=== PATIENT | male | born 1985 | race African-American/Black ===

== ENCOUNTER 2016-12-07 17:41 | Emergency (ER) | payer OTHER ==
[2016-12-07] MEDS ORDERED: KETOROLAC TROMETHAMINE 60 MG/2 ML SDV IM ONE (19:21)
--- NOTE | 2016-12-07 19:29 | ER Document Report ---
ED Neck/Back Problem - General Chief Complaint: Back Pain Stated Complaint: BACK PAIN Time Seen by Provider: 12/07/16 19:13 Notes: 31 yo male c/o left mid/upper back pain x 6 days. pain started after bending over. no radiculopathy or paresthesias, no bowel/bladder change . no fever. no relief with OTC motrin and topical pain patches (salanpas). TRAVEL OUTSIDE OF THE [place] IN LAST 30 DAYS: No - HPI Patient complains to provider of: Pain, Upper back Onset: Sudden Timing: Constant Pain Level: 5 Context: Bending Associated symptoms: denies: Motor loss, Numbness/tingling, Radiation to chest, Radiation to leg, Sensory loss, Unable to urinate Exacerbated by: Cough/deep breaths, Movement of trunk Similar symptoms previously: No Recently seen / treated by doctor: No - Related Data Allergies/Adverse Reactions: No Known Allergies Allergy (Verified 12/07/16 17:42) Past Medical History - General Information source: Patient - Social History Smoking Status: Never Smoker Frequency of alcohol use: None Drug Abuse: None 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 Lives with: Family Family History: Reviewed & Not Pertinent Patient has suicidal ideation: No Patient has homicidal ideation: No - Medical History Medical History: Other - PTSD, Bipolar Renal/ Medical History: Denies: Hx Peritoneal Dialysis Psychiatric Medical History: Reports: Hx Bipolar Disorder, Hx Post Traumatic Stress Disorder - Immunizations Immunizations up to date: No Review of Systems - Review of Systems Constitutional: No symptoms reported EENT: No symptoms reported Cardiovascular: No symptoms reported Respiratory: No symptoms reported Gastrointestinal: No symptoms reported Genitourinary: No symptoms reported Male Genitourinary: No symptoms reported Musculoskeletal: Back pain Skin: No symptoms reported Hematologic/Lymphatic: No symptoms reported Neurological/Psychological: No symptoms reported Physical Exam - Vital signs Vitals: Temp Pulse Resp BP Pulse Ox 97.9 F 70 15 151/89 H 98 12/07/16 17:42 12/07/16 17:42 12/07/16 17:42 12/07/16 17:42 12/07/16 17:42 Interpretation: Normal - General General appearance: Appears well, Alert In distress: Mild - visibly uncomfortable with movement - HEENT Head: Normocephalic, Atraumatic Eyes: Normal Pupils: PERRL - Respiratory Respiratory status: No respiratory distress Chest status: Nontender Breath sounds: Normal Chest palpation: Normal - Cardiovascular Rhythm: Regular Heart sounds: Normal auscultation Murmur: No - Abdominal Inspection: Normal Distension: No distension Bowel sounds: Normal Tenderness: Nontender Organomegaly: No organomegaly - Back Back: Tender - focal tenderness left rhomboid and latissimus muscle groups. no vertebral tenderness. no SI tenderness. neg heel/toe, SLT - Extremities General upper extremity: Normal inspection, Nontender, Normal color, Normal ROM , Normal temperature General lower extremity: Normal inspection, Nontender, Normal color, Normal ROM , Normal temperature, Normal weight bearing. No: Tyra's sign - Neurological Neuro grossly intact: Yes Cognition: Normal Orientation: AAOx4 Demetrio Coma Scale Eye Opening: Spontaneous [place] Coma Scale Verbal: Oriented [place] Coma Scale Motor: Obeys Commands [place] Coma Scale Total: 15 Speech: Normal Motor strength normal: LUE, RUE, LLE, RLE Sensory: Normal - Psychological Associated symptoms: Normal affect, Normal mood - Skin Skin Temperature: Warm Skin Moisture: Dry Skin Color: Normal Course - Re-evaluation Re-evalutation: 12/07/16 19:39 H&P c/w muscle strain. pt ambulatory without difficulty. no neurologic symptoms. low suspicion for cord compression, cauda equina, epidural abscess. no imaging indicated at this time. pt stable for discharge and follow up with PCM. pt agreeable with plan - Vital Signs Vital signs: Temp Pulse Resp BP Pulse Ox 97.9 F 70 15 151/89 H 98 12/07/16 17:42 12/07/16 17:42 12/07/16 17:42 12/07/16 17:42 12/07/16 17:42 Discharge - Discharge Clinical Impression: Muscle strain Back pain Qualifiers: Back pain location: back pain in unspecified location Chronicity: acute Back pain laterality: left Qualified Code(s): M54.9 - Dorsalgia, unspecified Condition: Stable Disposition: HOME, SELF-CARE Instructions: Muscle Strain ([facility]), Warm Packs ([facility]), Ice Packs ([facility]), Oral Narcotic Medication ([facility]), Toradol Injection ([facility]), Muscle Relaxers ([facility]), Ibuprofen (General) ([facility]) Additional Instructions: Take medications as prescribed Follow up with primary care if pain persists Return to ER for any worsening of status Prescriptions: Ibuprofen [Motrin 800 Mg Tablet] 800 mg PO Q6H #20 tablet Methocarbamol [Robaxin 500 Mg Tablet] 1,000 mg PO Q6 #30 tablet Oxycodone HCl/Acetaminophen [Percocet 5-325 mg Tablet] 1 - 2 tab PO ASDIR PRN # 25 tablet PRN Reason: Forms: Return to Work
[2016-12-07 20:01] VITALS: BP 129/81
== END 2016-12-07 20:00 | disposition home or self-care (01) ==
LOC: ER 17:41
DX: T14.8 Other injury of unspecified body region (principal); M54.89 Other dorsalgia; X58.XXXA Exposure to other specified factors, initial encounter
CPT/HCPCS: 99283; 96372; J1885

== ENCOUNTER 2017-08-16 22:08 | Emergency (ER) | payer OTHER ==
[2017-08-16] MEDS ORDERED: ACETAMINOPHEN 325 MG TABLET PO ONE (22:37)
[2017-08-16 22:38] VITALS: BP 139/73
[2017-08-17] MEDS ORDERED: IBUPROFEN 800 MG TABLET PO ONE (00:12)
[2017-08-17] MEDS ORDERED: ONDANSETRON HCL 8 MG TABLET PO ONE (00:12)
--- NOTE | 2017-08-17 00:12 | ER Document Report ---
HPI - HPI Pain Level: 4 Context: Patient is a 31 year old male who presents to the ED complaining of fever, body aches, sore throat, sinus congestion and drainage for the past 2 and half days. Patient admits recent sick contacts in his son. Also admits to intermittent nausea, vomiting and diarrhea. Patient states the last time he threw up was this morning and has not been drinking much throughout the day. Denies taking anything prior to arrival for his fever. Otherwise healthy male. Denies smoking - REPRODUCTIVE Reproductive: DENIES: : Past Medical History - Social History Smoking Status: Never Smoker Family History: Reviewed & Not Pertinent Renal/ Medical History: Denies: Hx Peritoneal Dialysis Psychiatric Medical History: Reports: Hx Bipolar Disorder, Hx Post Traumatic Stress Disorder - Immunizations Immunizations up to date: No Vertical Provider Document - CONSTITUTIONAL Agree With Documented VS: Yes Notes: PHYSICAL EXAM GENERAL: Alert, interacts well. HEAD: Normocephalic, atraumatic. EYES: Pupils equal, round, and reactive to light. Extraocular movements intact. ENT: Oral mucosa moist, tongue midline. HEENT: NCAT, pale conjunctiva, extraocular movements intact, pupils PERRL. external ear normal, no evidence of external auditory canal tenderness, blood/drainage, cerumen impaction, TM intact without evidence of effusion, bulging, injection, MMM, Uvula midline. Evidence of tonsillar exudates without pharyngeal erythema, edema airway patent. No evidence of tonsillar enlargement, peritonsillar abscess, retropharyngeal abscess. NECK: Full range of motion. Supple. Trachea midline. LUNGS: Clear to auscultation bilaterally, no wheezes, rales, or rhonchi. No respiratory distress. HEART: Regular rate and rhythm. No murmurs, gallops, or rubs. ABDOMEN: Soft, nondistended, nontender. No guarding, rebound, or rigidity.. Bowel sounds present in all 4 quadrants. EXTREMITIES: Moves all 4 extremities spontaneously. No edema, radial and dorsalis pedis pulses 2/4 bilaterally. No cyanosis. NEUROLOGICAL: Alert and oriented x4. Normal speech. PSYCH: Normal affect, normal mood. SKIN: Warm, dry, normal turgor. No rashes or lesions noted. - INFECTION CONTROL TRAVEL OUTSIDE OF THE [place] IN LAST 30 DAYS: No - RESPIRATORY O2 Sat by Pulse Oximetry: 97 Course - Re-evaluation Re-evalutation: 08/17/17 01:10 Patient is a 31-year-old male is hemodynamically stable, no acute distress and now afebrile. Repeat temp at 99 with a heart rate of 100. Patient clinically improved after p.o. Zofran and Motrin. Patient presents with cough, vomiting, diarrhea, and fever at home consistent with a diagnosis of influenza. Patient is overall well in appearance, in no acute distress. Lung sounds clear. Able to tolerate oral intake without difficulty here in the emergency department. After risks and benefits conversation with the patient regarding the use of Tamiflu, they have elected to use supportive care with Tamiflu despite education about lack of efficacy as well as the side effect profile. At this time will discharge with return precautions and follow-up recommendations. Verbal discharge instructions given a the bedside and opportunity for questions given. Medication warnings reviewed. Patient is in agreement with this plan and has verbalized understanding of return precautions and the need for primary care follow-up in the next 24-72 hours. - Vital Signs Vital signs: Temp Pulse Resp BP Pulse Ox 102.7 F H 119 H 16 139/73 H 97 08/16/17 22:37 08/16/17 22:37 08/16/17 22:37 08/16/17 22:37 08/16/17 22:37 Discharge - Discharge Clinical Impression: Flu-like symptoms Condition: Good Disposition: HOME, SELF-CARE Additional Instructions: You have influenza. There is no treatment that is effective for this diagnosis other than supportive care at home. This includes drinking plenty of fluids, using Tylenol or ibuprofen as needed for fever and discomfort, and Zofran as needed for nausea and vomiting. Please follow closely with you primary care physician the next 1-2 days regarding this diagnosis. Return to the emergency department immediately if you began to have persistent vomiting prevents you from being able to keep fluids down for more than 12 hours, you pass out, you began having difficulty breathing, you become confused, or you have any other symptoms that are worrisome to you. Prescriptions: Ondansetron [Zofran Odt 4 mg Tablet] 1 - 2 tab PO Q4H PRN #15 tab.rapdis PRN Reason: For Nausea/Vomiting Oseltamivir Phosphate [Tamiflu 75 mg Capsule] 75 mg PO BID #10 capsule Forms: Elevated Blood Pressure, Return to Work Referrals: KRISTIE RATLIFF MD [ACTIVE STAFF] - Follow up in 3-5 days
[2017-08-17] MEDS ORDERED: OSELTAMIVIR PHOSPHATE 75 MG CAPSULE PO ONE (00:49)
== END 2017-08-17 01:30 | disposition home or self-care (01) ==
LOC: ER 22:08
DX: R50.9 Fever, unspecified (principal); M79.1 Myalgia; J02.9 Acute pharyngitis, unspecified; R09.81 Nasal congestion
CPT/HCPCS: 99283; 87070; 87880; 87077; S0119; J3490